=== PATIENT | male | born 1990 | race Caucasian/White ===

== ENCOUNTER 2019-01-17 17:39 | Emergency (ER) | payer OTHER ==
[~2019-01-17] VITALS: Ht 180.3 cm; Wt 90.7 kg
[2019-01-17] MEDS ORDERED: NOHOMEMEDICATIONS (17:52)
[2019-01-17] MEDS ORDERED: BACTRIM DS TAB1 EACH PO (18:15)
[2019-01-17] MEDS ORDERED: OCUFLOX5 ML OPHTHALMIC (18:15)
[2019-01-17 18:29] VITALS: BP 142/84
== END 2019-01-17 18:29 | disposition home or self-care (01) ==
LOC: M.ERS 17:39
DX: S05.02XA Injury of conjunctiva and corneal abrasion without foreign body, left eye, initial encounter (principal); F17.210 Nicotine dependence, cigarettes, uncomplicated; X58.XXXA Exposure to other specified factors, initial encounter; Y93.89 Activity, other specified; Y92.89 Other specified places as the place of occurrence of the external cause; Y99.8 Other external cause status

== ENCOUNTER 2020-08-26 14:40 | Emergency (ER) | payer OTHER ==
[~2020-08-26] VITALS: Ht 172.7 cm; Wt 77.1 kg
[~2020-08-26 14:40] MED LIST: BACTRIM DS TAB1 EACH PO; NOHOMEMEDICATIONS; OCUFLOX5 ML OPHTHALMIC
[2020-08-26 15:38] VITALS: BP 119/74
[2020-08-26] MEDS ORDERED: MOBIC7.5 MG PO (16:18)
== END 2020-08-26 16:33 | disposition home or self-care (01) ==
LOC: M.ERS 14:40
DX: M25.561 Pain in right knee (principal); F17.210 Nicotine dependence, cigarettes, uncomplicated

== ENCOUNTER 2020-09-29 11:20 | Emergency (ER) | payer OTHER ==
[~2020-09-29] VITALS: Ht 172.7 cm; Wt 79.4 kg
[~2020-09-29 11:20] MED LIST changes: +MOBIC7.5 MG PO
[2020-09-29 12:48] VITALS: BP 133/81
== END 2020-09-29 12:49 | disposition home or self-care (01) ==
LOC: M.ERS 11:20
DX: M25.461 Effusion, right knee (principal)